=== PATIENT | female | born 1990 | race Two or more races ===

== ENCOUNTER 2016-08-31 17:32 | Emergency (ER) | payer OTHER ==
[~2016-08-31] VITALS: Ht 170.2 cm; Wt 59.0 kg
--- NOTE | 2016-08-31 17:32 | NUR ---
per report-she attempted to wrap plastic around her neck after hearing the verdict. C/O dyspareunia x 2 weeks . [employer] AT BEDSIDE . GOWNED PT. AWAITING MD ORDER.
[2016-08-31 18:26] LABS: BILIRUBIN,URINE NEGATIVE (NEGATIVE); BLOOD, URINE 3+ Ery/uL (NEGATIVE); COLOR,URINE YELLOW (YELLOW); KETONES,URINE NEGATIVE (NEGATIVE); LEUKOCYTE ESTERASE ,URINE TRACE (NEGATIVE); NITRITE, URINE NEGATIVE (NEGATIVE); PROTEIN,URINE NEGATIVE (NEGATIVE); UGLUCOSE NEGATIVE (NEGATIVE); UROBILINOGEN,URINE 0.2 EU/dL (0.2)
[2016-08-31 18:30] LABS: PREGNANCY TEST URINE QUAL NEGATIVE (NEGATIVE)
[2016-08-31] MEDS ORDERED: AZITHROMYCIN 250 MG TABLET PO ONE (18:30)
[2016-08-31] MEDS ORDERED: CEFTRIAXONE 500 MG VIAL IM ONE (18:30)
[2016-08-31] MEDS ORDERED: LIDOCAINE /MPF 1% VIAL 5 ML VIAL ONE (18:32)
[2016-08-31] MEDS ORDERED: CEFTRIAXONE 500 MG VIAL ONE (18:32)
[2016-08-31 18:45] LABS: APPEARANCE,URINE CLOUDY (CLEAR)
[2016-08-31 18:47] LABS: BACTERIA,URINE Many /HPF (None Seen); RBC,URINE 0-2 /HPF (0-2); SQUAMOUS EPITHELIAL CELL,UR Few /HPF (None Seen)
--- NOTE | 2016-08-31 19:16 | NUR ---
Patient discharged to home in stable condition. Written and verbal after care instructions given. Patient verbalizes understanding of instruction.
[2016-08-31 19:17] VITALS: BP 124/85
--- NOTE | 2016-08-31 19:17 | NUR ---
PT IN [facility] OK TO BOOK MEDICALLY CLEARED
== END 2016-08-31 19:17 | disposition home or self-care (01) ==
LOC: ER 17:36
DX: N73.9 Female pelvic inflammatory disease, unspecified (principal); N94.10 Unspecified dyspareunia
CPT/HCPCS: 81000-TC; 84703-TC; 87070-TC; 87081-TC; 87086-TC; 87110-TC; 87210-TC; A4606; J0696; J3490; Z7610

== ENCOUNTER 2016-10-04 22:10 | Emergency (ER) | payer SELFPAY ==
[~2016-10-04] VITALS: Ht 167.6 cm; Wt 63.5 kg
--- NOTE | 2016-10-04 22:20 | NUR ---
PT PRESENTED TO THE ER WITH A C/O FLU LIKE SYMPTOMS X 2 WKS. PT IS ALSO C/O PAIN AND BURNING W/URINATION. PT AMBULATED TO THE BATHROOM AND A URINE SAMPLE WAS OBTAINED.
--- NOTE | 2016-10-04 22:27 | NUR ---
DR. BAXTER IS AT THE BEDSIDE EVALUATING THE PT.
[2016-10-04] MEDS ORDERED: ONDANSETRON 4 MG TAB.RAPDIS SL ONE (22:30)
[2016-10-04] MEDS ORDERED: ONDANSETRON 4 MG TAB.RAPDIS ONE (22:30)
[2016-10-04] MEDS ORDERED: CEFTRIAXONE 1 G VIAL IM ONE (22:30)
[2016-10-04] MEDS ORDERED: AZITHROMYCIN 250 MG TABLET PO ONE (22:30)
[2016-10-04] MEDS ORDERED: LIDOCAINE /MPF 1% VIAL 5 ML VIAL ONE (22:31)
[2016-10-04] MEDS ORDERED: CEFTRIAXONE 1 G VIAL ONE (22:31)
[2016-10-04] MEDS ORDERED: AZITHROMYCIN 250 MG TABLET ONE (22:31)
[2016-10-04 23:29] LABS: APPEARANCE,URINE CLEAR (CLEAR); BILIRUBIN,URINE NEGATIVE (NEGATIVE); BLOOD, URINE NEGATIVE Ery/uL (NEGATIVE); COLOR,URINE YELLOW (YELLOW); KETONES,URINE NEGATIVE (NEGATIVE); LEUKOCYTE ESTERASE ,URINE NEGATIVE (NEGATIVE); NITRITE, URINE NEGATIVE (NEGATIVE); PH,URINE 5.5 (5.0-8.0); PROTEIN,URINE NEGATIVE (NEGATIVE); UGLUCOSE NEGATIVE (NEGATIVE); UROBILINOGEN,URINE 0.2 EU/dL (0.2)
[2016-10-04 23:30] LABS: PREGNANCY TEST URINE QUAL NEGATIVE (NEGATIVE)
[2016-10-04 23:44] VITALS: BP 116/65
== END 2016-10-04 23:45 | disposition home or self-care (01) ==
LOC: ER 22:13
DX: R30.0 Dysuria (principal); J06.9 Acute upper respiratory infection, unspecified; R21 Rash and other nonspecific skin eruption; F17.200 Nicotine dependence, unspecified, uncomplicated
CPT/HCPCS: 81001; 84703; 96372; 99284; 99406; A4606; J0696; J3490; Q0162; Z7610; 81000-TC